=== PATIENT | female | born 1940 | race Asian ===

== ENCOUNTER 2017-02-13 18:23 | Emergency (ER) | payer BC, MEDICARE ==
[2017-02-13 19:17] VITALS: BP 167/71
--- NOTE | 2017-02-13 20:32 | UC ---
General HPI - HPI Summary HPI Summary: rash on her right side that she noticed 5 days ago concerned that she may have a BOT fly has a sharp pain under the rash somtimes hasn't traveled for over 1 year denies fever. illness fatigue plays golf and spends alot of time outside - History of Current Complaint Chief Complaint: [employer] Stated Complaint: INSECT BITE AND ACCOMPANYING RASH Time Seen by Provider: 02/13/17 20:27 Hx Obtained From: Patient - Allergy/Home Medications Allergies/Adverse Reactions: Allergies Allergy/AdvReac Type Severity Reaction Status Date / Time Hydrochlorothiazide Allergy Severe "PAIN IN Verified 02/13/17 19:18 MY BONES" Home Medications: Home Medications Bp Med* 02/13/17 [History] Cholesterol Med* 02/13/17 [History] Ibuprofen TAB* [Advil TAB*] 400 mg PO PRN 02/13/17 [History] PMH/Surg Hx/FS Hx/Imm Hx Previously Healthy: Yes Cardiovascular History: Hypertension - Surgical History Surgical History: None - Family History Known Family History: Negative: Cardiac Disease, Hypertension, Diabetes - Social History Occupation: Retired Lives: With Family Alcohol Use: None Substance Use Type: None Smoking Status (MU): Never Smoked Tobacco Review of Systems Constitutional: Negative Skin: Rash Eyes: Negative ENT: Negative Respiratory: Negative Cardiovascular: Negative Gastrointestinal: Negative Genitourinary: Negative Motor: Negative Neurovascular: Negative Musculoskeletal: Negative Neurological: Negative Psychological: Negative All Other Systems Reviewed And Are Negative: Yes Physical Exam Triage Information Reviewed: Yes Appearance: No Pain Distress, Well-Nourished Vital Signs: Initial Vital Signs Temp 97.1 F 02/13/17 19:08 Pulse 63 02/13/17 19:08 Resp 16 02/13/17 19:08 BP 167/71 02/13/17 19:08 Pulse Ox 98 02/13/17 19:08 Vital Signs Reviewed: Yes Eyes: Positive: Conjunctiva Clear ENT: Positive: Pharynx normal, TMs normal Neck: Positive: No Lymphadenopathy Respiratory: Positive: Lungs clear, Normal breath sounds, No respiratory distress, No accessory muscle use Cardiovascular: Positive: RRR, No Murmur, Pulses Normal Abdomen Description: Positive: Nontender, Soft Bowel Sounds: Positive: Present Musculoskeletal: Positive: No Edema Neurological: Positive: Alert Psychological Exam: Normal Skin: Positive: Other - right side of trunk incsect bite with area of erythema surrounding it [id number] induration Course/Dx - Differential Dx - Multi-Symptom Provider Diagnoses: cellulitis Discharge - Discharge Plan Condition: Stable Disposition: HOME Prescriptions: Cephalexin CAP* [Keflex CAP*] 500 mg PO TID #21 cap Patient Education Materials: Cellulitis (ED) Referrals: [facility] [Outside] Additional Instructions: Please start antibiotic as directed Increase fluids and rest Take acetaminophen or ibuprofen for fever or pain Please review your discharge instructions. If your symptoms do not improve please call your primary care provider or return to urgent care. Your blood pressure is elevated. Please contact your primary care provider within 1 -4 weeks for further evaluation
== END 2017-02-13 20:57 | disposition home or self-care (01) ==
LOC: UCEAST 18:23
DX: L03.319 Cellulitis of trunk, unspecified (principal); W57.XXXA Bitten or stung by nonvenomous insect and other nonvenomous arthropods, initial encounter; Y93.9 Activity, unspecified; Y92.9 Unspecified place or not applicable; Y99.9 Unspecified external cause status; I10 Essential (primary) hypertension
CPT/HCPCS: 99202; G0463